=== PATIENT | female | born 1980 | race African-American/Black ===

== ENCOUNTER 2022-01-16 03:56 | Emergency (ER) | payer OTHER ==
[~2022-01-16] VITALS: Ht 152.4 cm; Wt 102.1 kg
[2022-01-16 04:29] VITALS: BP 158/92
[2022-01-16] MEDS ORDERED: IBUPROFEN 800 MG TAB PO ONE (04:45)
== END 2022-01-16 05:49 | disposition left against medical advice (07) ==
LOC: EDBD 03:56 → ER 03:56
DX: S80.211A Abrasion, right knee, initial encounter (principal); J45.909 Unspecified asthma, uncomplicated; I10 Essential (primary) hypertension; V43.52XA Car driver injured in collision with other type car in traffic accident, initial encounter; Y93.89 Activity, other specified; Y92.410 Unspecified street and highway as the place of occurrence of the external cause; Y99.8 Other external cause status